=== PATIENT | male | born 1985 | race Caucasian/White ===

== ENCOUNTER 2017-02-23 16:54 | Emergency (ER) | payer MEDICAID ==
[~2017-02-23] VITALS: Ht 188 cm; Wt 79.8 kg
[~2017-02-23 16:54] MED LIST: NOMEDS; PHENERGAN 25MG.25 M1 PO
--- NOTE | 2017-02-23 17:22 | Urgent Treatment Center Report ---
History of Present Issue Date/Time Seen by Provider 02/23/17 1710 Visit Reason Pt arrived:Walked Presenting Problem:PT STATES YESTERDAY AT 1800 HE BEGAN HAVING CRAMPING TO HIS RIGHT HIP. STATES ATTEMPTING TO "POP" HIS HIP BUT THAT MADE THE PAIN WORSE. DENIES INJURY OR ANY PREVIOUS PROBLEMS WITH HIP. STATES PAIN CONTINUES TODAY. DENIES TREATMENT PRIOR TO ARRIVAL Location if Accident: Onset of symptoms date/time:02/22/1712/04/1799 or onset unknown for: Have you (or family members/close friends) recently traveled outside the [place]? N If Yes, where/when: Have you had exposure to infectious disease within the past month? TB? Other? Specify: Source patient, RN notes reviewed, family Exam Limitations no limitations Comment Patient presents with acute onset right hip pain since yesterday. No inciting injury. Says he was walking down to his building when pain became so severe that he had to go back to the house. He states that his hip feels like it needs to pop, but will not. His girlfriend actually tried to pull on it and that made the pain significantly worse. No fever but woke up in cold sweat last night. Unable to find a comfortable position and is on crutches, unable to bear weight. ROM is very painful and makes him nauseous. ALLERGIES Coded Allergies: No Known Allergies (02/23/17) Home Medications Active Scripts Promethazine Hydrochloride (Phenergan 25MG Tab) 25 MG PO Q6H PRN #12 Prov: 10/04/11 Reported Medications No Home Medications (NO HOME MEDICATIONS) History Medical History General CAD? No Angina: No SD: No Hypertension? No Hyperlipidemia? No CHF? No DVT? No PE? No COPD? No Asthma? No Anemia? No GERD? No Gastric ulcers? No GI Bleed? No Hernia? No Thyroid Problems? No Hypothyroidism? No CVA? No Seizures? No Diabetes? No Renal Insuffiency? No UTI? No Stones? No BPH? No GB Disease: No Nephritic Syndrome? No Asplenia? No Hepatitis? No Sickle Cell Disease? No Arthritis? No Migraines? No Cataracts? No Glaucoma? No MRSA? No HIV? No TB? No Anxiety? No Depression? No Cancer? No Immunization HX DT/Tetanus 1-4 Years Ago Surgical Hx Previous Surgery?Y Tonsils WISDOM TEETH Social History Smoking Hx Smoker: Current Every Day Smoker Tobacco: Yes Type Cigarettes Packs/day < 1 Pack Alcohol Alcohol: No Review of Systems All Other Systems Reviewed and Negative Musculoskeletal see HPI, joint pain Physical Exam Vital Signs Vital Signs Date Time Temp Pulse Resp B/P Pulse O2 O2 Flow FiO2 Ox Delivery Rate 02/23 1706 98.0 98 18 143/75 100 General Appearance normal appearance Respiratory Status No: respiratory distress. Cardiovascular regular rate/rhythm Extremities painful ROM of right hip - unable to flex, internally rotate right hip without significant pain Neurologic alert, oriented x 3 Mental status normal mood/affect Medical Decision Making LABS/Meds/Orders Pt receiving controlled substance in ED? No Results/Orders Laboratory Tests 02/23/17 1740: WBC 9.0, RBC 5.08, Hgb 16.8, Hct 48.7, MCV 95.9, RDW 12.3, Plt Count 157, MPV 6.7 L, Gran % 74.5, Gran # 6.7, Lymphocytes % 15.3, Monocytes % 6.3, Eosinophils % 3.6, Basophils % 0.3, Lymphocytes # 1.4, Monocytes # 0.6, Eosinophils # 0.3, Basophils # 0.0, PUBS MCHC 34.4, ESR 0, MCH 33.0 H Current Medication Orders Sig/Jelani Start time Last Medication Dose Route Stop Time Status Admin Ketorolac 0 .STK-MED ONE 02/23 1849 DC Tromethamine .ROUTE Methylprednisolone 0 .STK-MED ONE 02/23 1849 DC Acetate IM Ketorolac 60 MG ONCE ONE 02/23 1845 DC Tromethamine IM 02/23 1846 Methylprednisolone 80 MG ONCE ONE 02/23 1845 DC Acetate IM 02/23 1846 Orders Procedure Date/time Status SED RATE 02/23 171 Complete CBC WITH AUTO DIFF 02/23 1719 Complete XRAY/CT/US XRAY/CT/US XRAY hip XR interpretation by discussed w/radiologist Xray Results no fracture seen, soft tissue swelling; recommend ortho consult Departure Departure Time of Disposition 1850 Disposition DC Home or Self Care(routine) Clinical Impression Primary Impression: Right hip pain Condition STABLE Referrals Madhu Sosa MD Patient Instructions DI for Hip Pain Additional Instructions F/U with ortho as recommended by radiologist. CBC, ESR were normal. Soft tissue swelling seen on plain films. Discharge Counseling Counseled pt/family regarding diagnosis, test results, medications/RX, home care, follow up needs Prescriptions Current Visit Scripts Naproxen (EC-Naprosyn) 500 MG PO BID #20 ECT at 9357
[2017-02-23 17:51] LABS: HEMOGLOBIN 16.8 g/dL (14.1-18.0); LYMPH # 1.4 K/mm3 (0.7-4.5); LYMPH % 15.3 % (10-50)
--- NOTE | 2017-02-23 18:42 | RADIOLOGY REPORT PS360 ---
HIP RT 2-3V W/PELVIS IF PERFOR HISTORY: PAIN/NO INJURYright hip pain no injury shooting pain below SI joint. (With walking. Patient Age: 31 years: Male Ordering Physician: QIGN BRANCH TECHNIQUE: AP and frog-leg view right hip. AP pelvis COMPARISON :None available available FINDINGS . There are are series of abnormal ovoid like dystrophic calcification seen above the femoral head along the superior joint capsule. Overlying femoral head and subcapital region.. .. This periarticular calcification reflects some form of dystrophic calcification along joint capsule and synovium suspect may be analogous to a calcific tendinitis type process. Condition referred to as. Which may yield similar calcifications.(Generalized hydroxyappetite deposition disease)-this is a consideration here, but is most commonly associated with femoral acetabular impingement anatomy which is not readily apparent here. Os acetabuli accessory ossifications & accessory labral calcifications tend to be more closely associated with the acetabulum and labrum mainly seen here. And do not extend this inferior. There is a slightly blunted appearance to the margin of right acetabulum margin which could reflect old trauma here and conceivably contributing to this appearance. Appears to be soft tissue swelling about the right hip most evident laterally. With joint effusion elevating flat planes lateral to the joint capsule.. Warrants orthopedic follow-up. May benefit from CT or MR to further evaluate if does not subside The left hip appears intact. Osseous pelvis is intact otherwise. Curious additional roundeddensity projected over the inferior left SI joint nearly 4 cm size. Suspect reflects some form of osseous protuberance or proliferation here on although could be a overlying structure... Patient may benefit from comparison the prior studies if available elsewhere. May of additional require a follow-up CT or MRI of pelvis and hip The hip joint spaces are well-maintained bilaterally. The femoral head and neck are intact. IMPRESSION. 1. Abnormal dystrophic calcifications are seen along the superior right hip joint capsule, extending peripherally from the right acetabulum and labrum. These are discussed above. 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 However there also appears joint effusion & swelling swelling at the hip. Clinical correlation required. 3. Recommend orthopedic follow-up. (. You may want to check Uric Acid., ESR, CBC currently, so that information is available for that follow-up visit..) 4. Also note a curious rounded 4 cm calcification project over the inferior left SI joint. Likely some form of osseous protuberance anterior posterior. Less likely overlying material and bowel with current appearance [email or web address]
[2017-02-23] MEDS ORDERED: EC NAPROSYN500 MG PO (18:52)
[2017-02-23 19:07] VITALS: BP 143/75
--- OUTSIDE RECORDS SUMMARY | 2017-02-24 19:04 | External Medical Summary Rpt ---
Author Author , ESTHER SANTANA Address Unknown Phone [email or web address] Care Team Providers Care Communication Consultant Name Role Phone [facility] Unavailable Unavailable H[facility]PITAL, [facility] JAM, MEJIA JAM Unavailable Unavailable [facility] Unavailable Unavailable [facility], [facility], Unavailable Unavailable [facility] Unavailable Unavailable H[facility]PITA, [facility] LYNNE RHO, LYNNE Unavailable Unavailable RHO JESU SCO, Unavailable Unavailable JESU SCO JESU SCO, Unavailable Unavailable JESU SCO Purpose Continuity of Care Document - 04-22-2014 through 2016 Problems Code Diagnosis DOS Provider Status 8250 CLOSED 10-28-2014 [place] FRA[place]OLOGY [place]ANE[place] 87450 DISORDER OF 09-30-2014 [facility] [place] BONE AND RADIOLOGY CARTILAGE UNSPECIFIED V1551 PERSONAL 09-30-2014 [place] HISTORY OF [facility] HOSPITAL FRACTURE V571 OTHER 09-20-2014 [facility] 9597 INJURY 06-15-2014 [facility] [place] OTHER&UNSPE RADIOLOGY CIFIED KNEE LEG ANKLE&FOOT 7295 PAIN IN 05-03-2014 JESU SOFT SCO TISSUES OF LIMB E9288 OTHER 05-03-2014 JESU ACCIDENT SCO Procedures Procedure DOS Code Location Performer Comment RADEX 92453 [facility] FOOT [address] [place] [address] MINIMUM 3 VIEWS RADEX 08204 [facility] FOOT [address] [place] [address] MINIMUM 3 VIEWS THERAPEUT 82899 [facility] IC PX 1/> 5 [facility]OSP[facility] EACH 15 MIN EXERCISES ADD LW L2820 [facility] EXT ORTH 5 [facility] SFT PROSTH PROSTH INTERFCE INC INC MOLD BELW KNEE ADD LOW L2330 [facility] EXT LACER 5 [facility]ACE [facility]ACE MOLD PT PROSTH PROSTH MDL CSTM INC INC ORTHOTIC ONLY ANK FT L1940 [facility] ORTHOTIC 5 [facility] PLASTIC/O PROSTH PROSTH TH INC INC MATERIAL CUSTOM BANDAR THERAPEUT 62732 MAX OSCARON IC PX 1/> [address] [facility] EACH 15 MIN EXERCISES RADEX 51025 [facility] FOOT 5 [facility] MINIMUM 3 VIEWS THERAPEUT 82133 MAX OSCARON IC PX 1/> 5 [facility]OSP[facility] EACH 15 MIN EXERCISES THERAPEUT 25938 MAX OSCAR[facility] IC PX 1/> 5 [facility]OSP[facility] EACH 15 MIN EXERCISES THERAPEUT 65314 MAX OSCARON IC PX 1/> [address] [facility] EACH 15 MIN EXERCISES PHYSICAL 40916 [facility] 5 [facility] N RADEX 40832 [facility] [place] FOOT 5 RADIOLOGY RHO COMPLETE MINIMUM 3 VIEWS RADIOLOGI 77118 [facility] C 4 [facility] ON FOOT 2 VIEWS RADEX 99202 [facility] [place] ME[place] JAM CALCANEUS 4 RADIOLOGY MINIMUM 2 VIEWS RADEX 11806 [facility] FOOT 4 [facility] MINIMUM [address] LOWER [address] [facility] EXTREMITY 4 N N W/O [facility] HOSPITA MATERIAL RADEX 35567 [facility] [place] MEJ[place] JAM ANKLE 4 RADIOLOGY COMPLETE MINIMUM 3 VIEWS RADEX 99364 [facility] [place] [facility] CALCANEUS 4 RADIOLOGY MINIMUM 2 VIEWS Encounters Encounter Start End Date Code Location Performer Type Date [facility] 5 [facility] [place] - 5 5 [facility] [place] - 5 5 [facility] [place] - 5 5 [facility] [place] - 5 5 [facility] [place] - 5 5 [facility] [place] - 5 5 [facility] [place] - 4 4 [facility] [place] - 4 4 [facility] [place] [address] 4 [facility] HOSPITA EMERGENCY 95614 JESU NAILS 4 4 SCO SCO [facility] VISIT HIGH/URGE NT SEVERITY
--- OUTSIDE RECORDS SUMMARY | 2017-02-24 19:04 | External Medical Summary Rpt ---
Author Author , ESTHER SANTANA Address Unknown Phone [email or web address] Care Team Providers Care Corrugated Fastener Driver Name Role Phone [facility] Unavailable Unavailable HOSPITAL, [facility] MEJIA JAM, MEJIA JAM Unavailable Unavailable [facility] Unavailable Unavailable INC, [facility], Unavailable Unavailable [facility] LYNNE RHO, LYNNE Unavailable Unavailable RHO JESU SCO, Unavailable Unavailable JESU SCO JESU SCO, Unavailable Unavailable JESU SCO SCALF CLAY, SCALF CLAY Unavailable Unavailable Purpose Continuity of Care Document - 04-22-2014 through 2016 Problems Code Diagnosis DOS Provider Status 8250 CLOSED 10-28-2014 [place]RA[place] 34055 DISORDER OF 09-30-2014 [facility] [place] BONE [place] RADIOLOGY CARTILAGE UNSPECIFIED V1551 PERSONAL 09-30-2014 [place] [facility]ISTORY OF [facility] HOSPITAL FRACTURE V571 OTHER 09-20-2014 [facility] 9597 INJURY 06-15-2014 [facility] [place] OTHER&UNSPE RADIOLOGY CIFIED KNEE LEG ANKLE&FOOT 7295 PAIN IN 05-03-2014 JESU SOFT SCO TISSUES OF LIMB E9288 OTHER 05-03-2014 JESU ACCIDENT SCO Procedures Procedure DOS Code Location Performer Comment RADEX 56555 [place] [place] FOOT 5 RADIOLOGY RHO COMPLETE MINIMUM 3 VIEWS RADEX 44697 [place] [place] FOOT 5 RADIOLOGY COMPLETE MINIMUM 3 VIEWS THERAPEUT 35075 [facility] IC PX 1/> 5 [facility] EACH 15 MIN EXERCISES ANK FT L1940 [facility] ORTHOTIC 5 BRACE BRACE PLASTIC/O PROSTH PROSTH TH INC INC MATERIAL CUSTOM BANDAR ADD LOW L2330 CEN[facility] CENTR[facility] EXT LACER 5 BRACE BRACE MOLD PT PROSTH PROSTH MDL CSTM INC INC ORTHOTIC ONLY ADD LW L2820 [facility] EXT ORTH 5 [facility]ACE [facility]ACE SFT PROSTH PROSTH INTERFCE INC INC MOLD BELW KNEE THERAPEUT 75150 MAX OSC[facility] IC PX 1/> 5 [facility] EACH 15 MIN EXERCISES RADEX 46555 [facility] [place] FOOT 5 RADIOLOGY RHO COMPLETE MINIMUM 3 VIEWS THERAPEUT 45183 MAX OSC[facility] IC PX 1/> 5 [facility] EACH 15 MIN EXERCISES THERAPEUT 63567 [facility] IC PX 1/> 5 [facility] EACH 15 MIN EXERCISES PHYSICAL 11610 MAX SANTANA THERAPY 5 [facility] N THERAPEUT 51880 [facility] S[facility]ANA IC PX 1/> 5 [facility] EACH 15 MIN EXERCISES RADEX 72506 [facility] [place] FOOT 5 RADIOLOGY RHO COMPLETE MINIMUM 3 VIEWS RADEX 68334 [facility] [place] MEJIA JAM CALCANEUS 4 RADIOLOGY MINIMUM 2 VIEWS RADIOLOGI [address] ON FOOT 2 VIEWS RADEX 41865 [facility] [place] FOOT 4 RADIOLOGY COMPLETE MINIMUM [address] LOWER 12795 [facility] [place] [place] EXTREMITY 4 RADIOLOGY W/O CONTRAST MATERIAL RADEX 88066 [facility] [place] ME[place] J[place] CALCANEUS 4 RADIOLOGY MINIMUM 2 VIEWS RADEX 23472 [facility] [place] ANKLE 4 RADIOLOGY COMPLETE MINIMUM 3 VIEWS Encounters Encounter Start End Date Code Location Performer Type Date HOSPITAL [place] - 5 5 [facility] [place] - 5 5 [facility] [place] - 5 5 [facility] [place] - 5 5 [facility] [place] - 5 5 [facility] [place] - [facility] [place] - 4 4 [facility] [place] - 4 4 [facility] EMERGENCY 48723 JESU NAILS 4 4 SCO SCO [facility] VISIT HIGH/URGE NT [facility] [place] [address] 4 N [facility]
--- OUTSIDE RECORDS SUMMARY | 2017-02-24 19:04 | External Medical Summary Rpt ---
Author Author , ESTHER SANTANA Address Unknown Phone [email or web address] Care Team Providers Care Plant Tour Guide Name Role Phone [facility] Unavailable Unavailable [facility], [facility] JAM, MEJIA JAM Unavailable Unavailable [facility] Unavailable Unavailable INC, [facility], Unavailable Unavailable [facility] Unavailable Unavailable HOSPITA, [facility] LYNNE RHO, LYNNE Unavailable Unavailable RHO JESU SCO, Unavailable Unavailable JESU SCO JESU SCO, Unavailable Unavailable JESU SCO Purpose Continuity of Care Document - 04-22-2014 through 2016 Problems Code Diagnosis DOS Provider Status 8250 CLOSED 10-28-2014 [place] FRACTURE [place] RADIOLOGY [place]CANE[place] 78892 DISORDER OF 09-30-2014 [facility] [place] BONE AND RADIOLOGY CARTILAGE UNSPECIFIED V1551 PERSONAL 09-30-2014 [place] HISTORY OF [facility]OSPITAL FRACTURE V571 OTHER 09-20-2014 [facility] 9597 INJURY 06-15-2014 [facility] [place] OTHER&UNSPE RADIOLOGY CIFIED KNEE LEG ANKLE&FOOT 7295 PAIN IN 05-03-2014 JESU SOFT SCO TISSUES OF LIMB E9288 OTHER 05-03-2014 JESU ACCIDENT SCO Procedures Procedure DOS Code Location Performer Comment RADEX 82712 [facility] FOOT [address] [place] [address] MINIMUM 3 VIEWS RADEX 50383 [facility] FOOT [address] [place] [address] MINIMUM 3 VIEWS THERAPEUT 62377 [facility] IC PX 1/> 5 [facility] EACH 15 MIN EXERCISES ADD LW L2820 [facility] EXT ORTH 5 BRACE BRACE SFT PROSTH PROSTH INTERFCE INC INC MOLD BELW KNEE ADD LOW L2330 [facility] CENTR[facility] EXT LACER 5 BRACE BRACE MOLD PT PROSTH PROSTH MDL CSTM INC INC ORTHOTIC ONLY ANK FT L1940 CENTRAL CENTRAL ORTHOTIC 5 BRACE BRACE PLASTIC/O PROSTH PROSTH TH INC INC MATERIAL CUSTOM BANDAR THERAPEUT 61374 MAX OSCARON IC PX 1/> 5 [facility] EACH 15 MIN EXERCISES RADEX 44404 [facility] FO[facility] 5 [facility] MINIMUM 3 VIEWS THERAPEUT 39465 AMX OSCARON IC PX 1/> 5 [facility] EACH 15 MIN EXERCISES THERAPEUT 55162 MAX OSCAR[facility] IC PX 1/> 5 [facility] EACH 15 MIN EXERCISES THERAPEUT 18949 MAX OSCAR[facility] IC PX 1/> 5 [facility] EACH 15 MIN EXERCISES PHYSICAL 74769 MAX [facility]INT [facility] N RADEX 80761 [facility] [place] FOOT 5 RADIOLOGY RHO COMPLETE MINIMUM 3 VIEWS RADIOLOGI 31814 [facility] C 4 [facility] ON FOOT 2 VIEWS RADEX 80367 [facility] [place] MEJ[place] JAM CALCANEUS 4 RADIOLOGY MINIMUM 2 VIEWS RADEX 82679 [facility] PAYNESAINT [facility]ON FOOT 4 [facility] MINIMUM [address] [address]606 [facility] EXTREMITY 4 N N W/O [facility] HOSPITA MATERIAL RADEX 35003 [facility] [place] ME[place] JAM ANKLE 4 RADIOLOGY COMPLETE MINIMUM 3 VIEWS RADEX 97798 [facility] [place] CALCANEUS 4 RADIOLOGY MINIMUM 2 VIEWS Encounters Encounter Start End Date Code Location Performer Type Date [facility] 5 [facility] [place] - 5 5 [facility] [place] - 5 5 [facility] [place] - 5 5 [facility] [place] - 5 5 [facility] [place] - 5 5 [facility] [place] - 5 5 [facility] [place] - 4 4 [facility] [place] - 4 4 [facility] [place] [address] 4 [facility] HOSPITA EMERGENCY 90309 JESU NAILS 4 4 SCO SCO [facility] T VISIT HIGH/URGE NT SEVERITY
--- OUTSIDE RECORDS SUMMARY | 2017-02-24 19:04 | External Medical Summary Rpt ---
Author Author , ESTHER SANTANA Address Unknown Phone [email or web address] Care Team Providers Care Cranberry Sorter Name Role Phone [facility] Unavailable Unavailable HOSPITAL, [facility] MEJIA JAM, MEJIA JAM Unavailable Unavailable [facility] [...] 10-28-2014 [place] FRA[place]IOLOGY [place]CANE[place] 66061 DISORDER OF 09-30-2014 [place] BONE AND RADIOLOGY CARTILAGE UNSPECIFIED V1551 PERSONAL 09-30-2014 [facility] [facility] OF [facility] HOSPITAL FRACTURE V571 OTHER 09-20-2014 [facility] 9597 INJURY 06-15-2014 [place] OTHER&UNSPE RADIOLOGY CIFIED KNEE LEG ANKLE&FOOT 7295 PAIN IN 05-03-2014 JESU SOFT SCO TISSUES OF LIMB E9288 OTHER 05-03-2014 JESU ACCIDENT SCO Procedures Procedure DOS Code Location Performer Comment RADEX 35927 [facility] [place] FOOT 5 RADIOLOGY RHO COMPLETE MINIMUM 3 VIEWS RADEX 13569 [place] [place] FOOT 5 RADIOLOGY COMPLETE MINIMUM 3 VIEWS THERAPEUT 96673 [facility] IC PX 1/> 5 [facility] EACH 15 MIN EXERCISES [...] INTERFCE INC INC MOLD BELW KNEE THERAPEUT 36594 MAX OSCARON IC PX 1/> 5 [facility] EACH 15 MIN EXERCISES RADEX 61898 [facility] [place] FOOT 5 RADIOLOGY RHO COMPLETE MINIMUM 3 VIEWS THERAPEUT 63191 MAX OSCAR[facility] IC PX 1/> 5 [facility] EACH 15 MIN EXERCISES THERAPEUT 14180 [facility] IC PX 1/> 5 [facility] EACH 15 MIN EXERCISES PHYSICAL 28418 MAX SANTANA THERAPY 5 [facility] N THERAPEUT 77555 [facility] IC PX 1/> 5 [facility] EACH 15 MIN EXERCISES RADEX 49032 [facility] [place] FOOT 5 RADIOLOGY RHO COMPLETE MINIMUM 3 VIEWS RADEX 89346 [facility] [place] J[place] CALCANEUS 4 RADIOLOGY MINIMUM 2 VIEWS RADIOLOGI [address] ON FOOT 2 VIEWS RADEX 75967 [facility] [place] FOOT 4 RADIOLOGY COMPLETE MINIMUM [address] LOWER 95204 [facility] [place] EXTREMITY 4 RADIOLOGY W/O CONTRAST MATERIAL RADEX 04713 [facility] [place] CALCANEUS 4 RADIOLOGY MINIMUM 2 VIEWS RADEX 09378 [facility] [place] ANKLE 4 RADIOLOGY COMPLETE MINIMUM 3 VIEWS Encounters Encounter Start End Date Code Location Performer Type Date [facility] - 5 5 [facility] - 5 5 [facility] - 5 5 [facility] - 5 5 [facility] - 5 5 [facility] - 5 [facility] - 5 5 [facility] - 4 4 [facility] - 4 4 [facility] 10777 JESU NAILS 4 4 SCO SCO [facility] VISIT HIGH/URGE NT [facility] [place] [address] 4 N [facility]
--- OUTSIDE RECORDS SUMMARY | 2017-02-24 19:05 | External Medical Summary Rpt ---
Author Author , JUAN C SANTANA Address Unknown Phone [email or web address] Immunization Name Date Rout CVX Reac Dose Comm Prov Is Faci e tion ent ider Refu lity Give sed n Hep 09-18 42 999 Hist H191 No H191 B, 7- oric adol 99 al Info High rmat Ris ion - Sour ce Unsp ecif ied Hep 03-21 42 999 Hist H191 No H191 B, 5-19 oric adol 98 al Info High rmat Ris ion - Sour ce Unsp ecif ied Hep 08- 8 999 Hist H191 No H191 B, 2-19 oric ped/ 98 al adol Info rmat ion - Sour ce Unsp ecif ied MMR 08- 3 999 Hist H191 No H191 2-19 oric 98 al Info rmat ion - Sour ce Unsp ecif ied
--- OUTSIDE RECORDS SUMMARY | 2017-02-24 19:05 | External Medical Summary Rpt ---
Author Author ALEXEIJESSICA Salazar, [employer] [employer] Address Unknown Phone Unavailable Results CBC W Auto Differential panel in Blood Observa Value Referen Units Interpr Notes Date tion ce etation Range Basophils 0 - 0.2 K/MM3 Normal No Feb 23 informati 2016 5:40 [#/volume on in PM ] in source Blood by data Automated count Basophils 0.1 - 2.0 % Normal No Feb 23 / informati 2016 5:40 leukocyte on in PM s in source Blood by data Automated count Eosinophi 0.0 - 0.4 K/mm3 Normal No Feb 23 ls informati 2016 5:40 [#/volume on in PM ] in source Blood by data Automated count Eosinophi 0.1 - % Normal No Feb 23 ls/100 12.0 informati 2016 5:40 leukocyte on in PM s in source Blood by data Automated count Granulocy 1.3 - 8.0 K/mm3 Normal No Feb 23 rianna informati 2016 5:40 [#/volume on in PM ] in source Blood by data Automated count Granulocy 37.0 - % Normal No Feb 23 rianna/100 80.0 informati 2016 5:40 leukocyte on in PM s in source Blood by data Automated count Hematocri 42.0 - % Normal No Feb 23 t [Volume 52.0 informati 2016 5:40 on in PM Fraction] source of Blood data Hemoglobi 14.1 - g/dL Normal No Feb 23 n 18.0 informati 2016 5:40 [Mass/vol on in PM ume] in source Blood data Lymphocyt 0.7 - 4.5 K/mm3 Normal No Feb 23 es informati 2016 5:40 [#/volume on in PM ] in source Unspecifi data ed specimen by Automated count Lymphocyt 10 - 50 % Normal No Feb 23 es informati 2016 5:40 [#/volume on in PM ] in source Unspecifi data ed specimen by Automated count Erythrocy 27 - 31.2 pg High No Feb 23 te mean informati 2016 5:40 corpuscul on in PM ar source hemoglobi data n [Entitic mass] Erythrocy 31.8 - g/dl Normal No Feb 23 te mean 35.4 informati 2016 5:40 corpuscul on in PM ar source hemoglobi data n concentra tion [Mass/vol ume] by Automated count Erythrocy 82.2 - fl Normal No Feb 23 te mean 97.8 informati 2016 5:40 corpuscul on in PM ar volume source [Entitic data volume] by Automated count Monocytes 0.1 - 1.0 K/mm3 Normal No Feb 23 informati 2016 5:40 [#/volume on in PM ] in source Blood by data Automated count Monocytes 1.7 - 9.3 % Normal No Feb 23 /100 informati 2017 5:40 leukocyte on in PM s in source Blood by data Automated count Platelet 7.4 - fl Low No Feb 23 mean 10.4 informati 2016 5:40 volume on in PM [Entitic source volume] data in Blood by Automated count Platelets 142 - 424 K/mm3 Normal No Feb 23 inform2016 5:40 [#/volume on in PM ] in source Blood data Erythrocy 4.6 - 6.2 M/mm3 Normal No Feb 23 rianna informati 2017 5:40 [#/volume on in PM ] in source Amniotic data fluid Erythrocy 11.5 - % Normal No Feb 23 te 17.5 informati 2016 5:40 distribut on in PM ion width source [Entitic data volume] by Automated count Leukocyte 4.8 - K/MM3 Normal No Feb 23 s 10.8 informati 2016 5:40 [#/volume on in PM ] in source Blood data Erythrocyte sedimentation rate by Westergren method Observa Value Referen Units Interpr Notes Date tion ce etation Range Erythrocy 0 - 15 mm/hr Normal No Feb 23 te informati 2016 5:40 sedimenta on in PM tion rate source by data Westergre n method
--- OUTSIDE RECORDS SUMMARY | 2017-02-24 19:05 | External Medical Summary Rpt ---
Author Author , JUAN C SANTANA Address Unknown Phone [email or web address] Immunization Name Date Rout CVX Reac Dose [...]
--- OUTSIDE RECORDS SUMMARY | 2017-02-24 19:05 | External Medical Summary Rpt ---
Author Author ALEXEIJESSICA Salazar, [facility] [employer] Organization [employer] Address Unknown Phone Unavailable [...]
== END 2017-02-23 19:10 | disposition home or self-care (01) ==
LOC: UTC 16:54
PROVIDERS: Emergency Medicine
DX: M25.551 Pain in right hip (principal); Z72.0 Tobacco use
CPT/HCPCS: J1040